=== PATIENT | male | born 1960 | race Caucasian/White ===

== ENCOUNTER 2018-08-29 19:10 | Inpatient (IN) | payer OTHER ==
[~2018-08-29] VITALS: Ht 170.2 cm; Wt 77.1 kg
[~2018-08-29 19:10] MED LIST: ASPI-1155 PO; INSU100V SQ; INSU100V9 SQ; LISI-209 PO
[2018-08-29 19:13] VITALS: BP_SYST 191
[2018-08-29] MEDS ORDERED: NACL 0.9% 1,000 ML IV ONE (19:13)
[2018-08-29] MEDS ORDERED: NITROGLYCERIN 0.4 MG TAB.SUBL SL ONE (19:15)
[2018-08-29] MEDS ORDERED: CLOPIDOGREL BISULFATE 75 MG TABLET PO ONE (19:15)
[2018-08-29] MEDS ORDERED: ASPIRIN 81 MG TAB.CHEW PO ONE (19:15)
[2018-08-29] MEDS ORDERED: CLOPIDOGREL BISULFATE 75 MG TABLET ONE (19:30)
[2018-08-29] MEDS ORDERED: ONDANSETRON HCL 4 MG/2 ML VIAL ONE (19:45)
[2018-08-29] MEDS ORDERED: ONDANSETRON 4 MG ODT TAB PO ONE (19:45)
[2018-08-29 19:50] LABS: BASOPHILS % (AUTO) 0.3 % (0.0-2.0); EOSINOPHILS % (AUTO) 0.4 % (0.0-4.0); HEMATOCRIT 50.9 % (36-54); HEMOGLOBIN 17.3 g/dL (14.0-18.0); LYMPHOCYTES # (AUTO) 1.4 K/uL (1.0-5.5); LYMPHOCYTES % (AUTO) 14.2 % (20.5-51.5); MEAN CORPUSCULAR HEMOGLOBIN 33 pg (27-31); MEAN CORPUSCULAR HGB CONC 34 % (32-36); MEAN CORPUSCULAR VOLUME 97 fL (79.0-98.0); MONOCYTES # (AUTO) 0.6 K/uL (0.0-1.0); MONOCYTES % (AUTO) 6.2 % (1.7-9.3); NEUTROPHILS # (AUTO) 7.8 K/uL (1.8-7.7); NEUTROPHILS % (AUTO) 78.9 % (40.0-70.0); PLATELET COUNT (AUTO) 323 K/uL (130-430); RED BLOOD CELL COUNT(AUTO) 5.28 MIL/uL (4.2-6.2); RED CELL DISTRIBUTION WIDTH 12.1 % (9.0-15.0); WHITE BLOOD COUNT (AUTO) 9.8 K/uL (4.8-10.8)
[2018-08-29] MEDS ORDERED: PANTOPRAZOLE SODIUM 40 MG TAB PO ONE (20:00)
[2018-08-29 20:38] LABS: CALCIUM 10.7 mg/dL (8.4-11.0); CREATININE 1.07 mg/dL (0.55-1.30); POTASSIUM 3.8 mmol/L (3.5-5.1)
[2018-08-29 20:43] LABS: PROTHROMBIN TIME 10.4 SECS (9.5-12.5)
[2018-08-29 20:45] LABS: TOTAL BILIRUBIN 0.8 mg/dL (0.0-1.0)
[2018-08-29] MEDS ORDERED: NITROGLYCERIN 1 INCH (GM) OINT. ONE (21:15)
[2018-08-29] MEDS ORDERED: NITROGLYCERIN 1 INCH (GM) OINT. TP ONE (21:15)
[2018-08-29] MEDS ORDERED: ROSU10TA PO (21:21)
[2018-08-29] MEDS ORDERED: METOPROLOL TARTRATE 25 MG TABLET PO ONE (22:00)
[2018-08-29] MEDS ORDERED: ENOXAPARIN SODIUM 80 MG/0.8 ML SYRINGE SUBCUT ONE (22:00)
[2018-08-29] MEDS ORDERED: INSULIN REGULAR, HUMAN 100 UNITS/ML, 10 ML VIAL (novoLIN R) SUBCUT PRN (22:30)
[2018-08-29] MEDS ORDERED: DEXTROSE 50% JECT 50 ML DISP.SYRIN IVP PRN (22:30)
[2018-08-29 22:38] VITALS: BP_SYST 146
[2018-08-29 23:00] LABS: BILIRUBIN,URINE NEGATIVE (NEGATIVE); BLOOD, URINE NEGATIVE (NEGATIVE); CLARITY/URINE CLEAR (CLEAR); COLOR,URINE YELLOW (YELLOW); GLUCOSE,URINE NEGATIVE (NEGATIVE); KETONES,URINE 3+ (NEGATIVE); LEUKOCYTE ESTERASE ,URINE NEGATIVE (NEGATIVE); NITRITE, URINE NEGATIVE (NEGATIVE); PH,URINE 6.5 (5.0-8.0); PROTEIN URINE NEGATIVE (NEGATIVE); UROBILINOGEN,URINE 0.2 (0.2-1.0)
[2018-08-29 23:06] LABS: RBC,URINE 0-3 /HPF (0-3); WBC,URINE 0-3 /HPF (0-3)
[2018-08-29 23:07] LABS: BACTERIA,URINE RARE /HPF (None Seen); YEAST,URINE None Seen /HPF (None Seen)
[2018-08-29 23:24] LABS: CHOLESTEROL 122 mg/dL (<200); HDL CHOLESTEROL 48 mg/dL (>45); LDL CHOLESTEROL 69 mg/dL (<100); TRIGLYCERIDES 40 mg/dL (30-150)
[2018-08-29] MEDS ORDERED: ACETAMINOPHEN 325 MG TABLET PO PRN (23:45)
[2018-08-30] MEDS: MORPHINE 4 MG/ML INJ. SYRINGE IVP PRN ×3 (00:06→10:10)
[2018-08-30 00:20] VITALS: BP_SYST 132
[2018-08-30 03:35] VITALS: BP_SYST 135
[2018-08-30 08:00] VITALS: BP_SYST 142
[2018-08-30] MEDS ORDERED: ENOXAPARIN SODIUM 80 MG/0.8 ML SYRINGE SUBCUT SCH (08:00)
[2018-08-30] MEDS ORDERED: LISINOPRIL 5 MG TABLET PO SCH (09:00)
[2018-08-30] MEDS ORDERED: METOPROLOL TARTRATE 25 MG TABLET PO SCH (09:00)
[2018-08-30] MEDS ORDERED: *LOVENOX 1MG/KG Q24H/PHARMACY XX SCH (09:00)
[2018-08-30] MEDS ORDERED: ASPIRIN 81 MG TAB.CHEW PO SCH (09:00)
[2018-08-30] MEDS ORDERED: ATORVASTATIN 20 MG TABLET PO SCH (09:00)
[2018-08-30] MEDS ORDERED: ROSUVASTATIN CALCIUM 5 MG/TAB (CRESTOR) PO SCH (09:00)
[2018-08-30 10:14] VITALS: BP_SYST 150
[2018-08-30 10:33] VITALS: BP_SYST 150
== END 2018-08-30 11:17 | disposition short-term general hospital (02) | DRG 282 ==
LOC: SED 19:10 → STU 21:30
PROVIDERS: ADMIT Internal Medicine Hospice and Palliative Medicine; ATTEND Internal Medicine Hospice and Palliative Medicine
DX: I21.4 Non-ST elevation (NSTEMI) myocardial infarction (principal); E10.9 Type 1 diabetes mellitus without complications; E78.5 Hyperlipidemia, unspecified; I10 Essential (primary) hypertension; Z79.4 Long term (current) use of insulin; Z87.891 Personal history of nicotine dependence
CPT/HCPCS: 36415; 71045; 80053; 80061; 81000-TC; 82150-TC; 82550-TC; 82962; 83605; 83690-TC; 83880; 84484; 85025; 85610-TC; 85730-TC; 87040-TC; 93005; 93306; 99285; G0378; J1650; J2270; J2405; Q0162

== ENCOUNTER 2021-09-04 06:55 | Day surgery (SDC) | payer OTHER, SELFPAY ==
[~2021-09-04] VITALS: Ht 170.2 cm; Wt 74.8 kg
[~2021-09-04 06:55] MED LIST changes: +ROSU10TA2 PO
[2021-09-04] MEDS ORDERED: CEFAZOLIN 2 GM IVPB PREMIX 50 ML IV ONE (07:00)
[2021-09-04] MEDS ORDERED: SUCCINYLCHOLINE CHLORIDE 20 MG/ML(QUELICIN) IVP ONE (08:45)
[2021-09-04] MEDS ORDERED: NS IRRIG SOLN 1000 ML IR ONE (08:45)
[2021-09-04] MEDS ORDERED: MIDAZOLAM HCL 5 MG/5 ML VIAL IVP ONE (08:45)
[2021-09-04] MEDS ORDERED: DEXAMETHASONE SOD PHOSPHATE 4 MG/ML VIAL IVP ONE (08:45)
[2021-09-04] MEDS ORDERED: fentaNYL CITRATE 250 MCG/5 ML AMP IV ONE (08:45)
[2021-09-04] MEDS ORDERED: PROPOFOL 200MG/ 20ML VIAL (DIPRIVAN) IV ONE (08:45)
[2021-09-04] MEDS ORDERED: LR 1,000 ML IV.SOLN IV ONE (08:45)
[2021-09-04] MEDS ORDERED: ONDANSETRON HCL 4 MG/2 ML VIAL IVP ONE (08:45)
[2021-09-04] MEDS ORDERED: BUPIVACAINE /EPINEPHRINE/PF 0.5% 30 ML VIAL INJ ONE (08:45)
[2021-09-04] MEDS ORDERED: SEVOFLURANE 15 MIN GAS INH ONE (08:45)
[2021-09-04] MEDS ORDERED: WATER FOR IRRIGATION,STERILE 1,000 ML IRRIG.SOLN IR ONE (08:45)
[2021-09-04] MEDS ORDERED: SUGAMMADEX SODIUM 200 MG/2 ML VIAL IV ONE (08:45)
[2021-09-04] MEDS ORDERED: ROCURONIUM BROMIDE 10 MG/ML (ZEMURON) IV ONE (08:45)
[2021-09-04] MEDS ORDERED: METOCLOPRAMIDE HCL 10 MG/2 ML VIAL IVP PRN (11:30)
[2021-09-04] MEDS ORDERED: HYDROmorphone 1 MG/ML INJ. CARTRIDGE IVP PRN (11:30)
[2021-09-04] MEDS ORDERED: KETOROLAC TROMETHAMINE 30 MG VIAL IVP PRN (11:30)
[2021-09-04] MEDS ORDERED: LR 1,000 ML IV SCH (11:30)
[2021-09-04] MEDS ORDERED: ONDANSETRON HCL 4 MG/2 ML VIAL IVP PRN (11:30)
[2021-09-04] MEDS ORDERED: MEPERIDINE HCL/PF 25 MG/ML DISP.SYRIN IVP PRN (11:30)
[2021-09-04 14:21] VITALS: BP_SYST 137
== END 2021-09-04 13:35 | disposition home or self-care (01) ==
LOC: SDS 06:55 → SMU 06:56 → SDS 11:15 → SMU 11:15 → SDS 13:35
PROVIDERS: ATTEND Surgery
DX: K40.90 Unilateral inguinal hernia, without obstruction or gangrene, not specified as recurrent (principal); K42.9 Umbilical hernia without obstruction or gangrene; E10.9 Type 1 diabetes mellitus without complications; I10 Essential (primary) hypertension; Z20.822 Contact with and (suspected) exposure to COVID-19; Z79.4 Long term (current) use of insulin; Z79.899 Other long term (current) drug therapy
CPT/HCPCS: 36415; 49585; 49650; 71046; 82962; 87426; C1781 ×2; J0330; J0690; J1100; J2250; J2405; J2704; J3010; J3490 ×2; J7120; S2900; U0003; E0190

== ENCOUNTER 2022-07-18 11:24 | Observation (INO) | payer OTHER ==
[~2022-07-18] VITALS: Ht 152.4 cm; Wt 68.2 kg
--- NOTE | 2022-07-18 11:39 | NUR ---
PATIENT AMBULATORY TO ER AAOX4 SPEECH CLEAR AND COHERENT, C/O CHEST PAIN SINCE LAST NIGHT WITH HX OF DM, PLACE IN BED, AWAITING FOR EDP FOR INITIAL ASSESSMENT.
[2022-07-18 11:46] VITALS: BP_SYST 134
[2022-07-18] MEDS ORDERED: MAG-AL HYDROX/SIMETH 30 ML UDC PO ONE (12:15)
[2022-07-18] MEDS ORDERED: FAMOTIDINE 20 MG TABLET PO ONE (12:15)
[2022-07-18 12:38] LABS: BASOPHILS % (AUTO) 0.3 % (0.0-2.0); EOSINOPHILS # (AUTO) 0.1 K/uL (0.0-0.4); EOSINOPHILS % (AUTO) 2.6 % (0.0-4.0); HEMATOCRIT 42.4 % (36-54); HEMOGLOBIN 14.8 g/dL (14.0-18.0); LYMPHOCYTES # (AUTO) 0.7 K/uL (1.0-5.5); LYMPHOCYTES % (AUTO) 25.9 % (20.5-51.5); MEAN CORPUSCULAR HEMOGLOBIN 35 pg (27-31); MEAN CORPUSCULAR HGB CONC 35 % (32-36); MEAN CORPUSCULAR VOLUME 100 fL (79.0-98.0); MONOCYTES # (AUTO) 0.4 K/uL (0.0-1.0); MONOCYTES % (AUTO) 16.4 % (1.7-9.3); NEUTROPHILS # (AUTO) 1.4 K/uL (1.8-7.7); NEUTROPHILS % (AUTO) 54.8 % (40.0-70.0); PLATELET COUNT (AUTO) 137 K/uL (130-430); RED BLOOD CELL COUNT(AUTO) 4.24 MIL/uL (4.2-6.2); RED CELL DISTRIBUTION WIDTH 12.7 % (9.0-15.0); WHITE BLOOD COUNT (AUTO) 2.5 K/uL (4.8-10.8)
[2022-07-18 12:49] LABS: ANION GAP 4 (5-15); CALCIUM 8.2 mg/dL (8.4-11.0); CHLORIDE 102 mmol/L (98-107); CREATININE 0.89 mg/dL (0.55-1.30); GLUCOSE 91 mg/dL (70-99); UREA NITROGEN, BLOOD 18 mg/dL (8-21)
[2022-07-18 12:55] LABS: ALANINE AMINOTRANSFERASE 67 U/L (12-78); ALBUMIN 3.2 g/dL (3.4-4.8); ASPARTATE AMINOTRANSFERASE 67 U/L (10-37); LIPASE 57 U/L (73-393); TOTAL BILIRUBIN 0.6 mg/dL (0.0-1.0)
[2022-07-18 12:56] LABS: GFR AFRICAN AMERICAN 111 mL/min (>90)
--- NOTE | 2022-07-18 13:30 | NUR ---
PATIENT REMAINS IN BED AWAITING FOR BED ASSIGNMENT.
--- NOTE | 2022-07-18 14:32 | NUR ---
COVID SWAB COLLECTED AND SENT TO LAB
[2022-07-18] MEDS ORDERED: INSULIN REGULAR, HUMAN 100 UNITS/ML, 3 ML VIAL (humuLIN R) SUBCUT PRN (15:00)
[2022-07-18] MEDS ORDERED: GLUCOSE (DEXTROSE) ORAL GEL -Adults PO PRN (15:00)
[2022-07-18] MEDS ORDERED: D5W 1,000 ML IV PRN (15:00)
[2022-07-18] MEDS ORDERED: DEXTROSE 50% JECT 50 ML DISP.SYRIN IVP PRN (15:00)
[2022-07-18] MEDS ORDERED: MORPHINE 2 MG/ML INJ. SYRINGE IVP PRN (15:00)
--- NOTE | 2022-07-18 15:04 | NUR ---
ECHOCARDIOGRAM IN PROCESS.
--- NOTE | 2022-07-18 15:57 | NUR ---
Admit bed requested Patient will be admitted to care of . Admitted to TELE unit. Diagnosis CP Inpatient (Yes or No) Y Observation (Yes or No) N Orientation concerns or request close to nursing station (Yes or No) N Covid Status NEG On vent or bipap N Isolation requirements N Needs a sitter N From Home (Yes or if No enter name of facility) Y Requires Dialysis (Yes or No) N Med Rec Completed (Yes of No) Y
[2022-07-18] MEDS ORDERED: LIP10 PO (16:15)
[2022-07-18] MEDS ORDERED: SSNOVOLOG SUBCUT (16:15)
[2022-07-18] MEDS ORDERED: CARV3.1246 PO (16:15)
[2022-07-18] MEDS ORDERED: ASA81 PO (16:15)
[2022-07-18] MEDS ORDERED: EZET-75 PO (16:15)
[2022-07-18] MEDS ORDERED: LISI20TA30 PO (16:15)
--- NOTE | 2022-07-18 16:36 | NUR ---
CONSULTATION PAGED/CALLED Reason for Consultation: [] CP Person Who was Notified: [] DANILO Consulting Physician: [] DR ORELLANA Ccna Specialty: [] CARDIO Ordering Physician: [] DR PERSAUD
[2022-07-18 16:52] VITALS: BP_SYST 145
--- NOTE | 2022-07-18 16:52 | NUR ---
Patient will be admitted to care of DR PERSAUD. Admitted to TELE unit. Will go to room 106A. Belongings list completed. Complete and up to date summary report printed. SBAR report to be given at bedside with opportunity for questions.
[2022-07-18 20:00] VITALS: BP_SYST 136
[2022-07-18 21:00] VITALS: BP_SYST 136
[2022-07-18] MEDS ORDERED: ATORVASTATIN 20 MG TABLET PO SCH (21:00)
--- NOTE | 2022-07-19 01:00 | NUR ---
LATE ENTRY DUE TO PATIENT CARE 2100 RECEIVED LYING IN BED WITH EYES CLOSED, EASILY AROUSED. ORIENTED X4. DENIES PAIN OR DISCOMFORT. ON ROOM AIR, NO SHORTNESS OF BREATH NOTED. CALL LIGHT WITHIN REACH. BED IN LOW, LOCKED POSITION. FALL PRECAUTIONS IN PLACE.
--- NOTE | 2022-07-19 08:00 | NUR ---
AM NOTES NO CHESTPAIN NOTED, WITH INSULIN PUMP ATTACHED TO LEFT SIDE OF HIS ABDOMEN, MACHINE DOING HIS OWN ACCUCHECK, WITH HUMALOG INSIDE THE PUMP.AWAITING FOR DR ORELLANA AND CORI TO SEE PATIENT.
[2022-07-19 08:30] LABS: BASOPHILS % (AUTO) 0.4 % (0.0-2.0); EOSINOPHILS # (AUTO) 0.1 K/uL (0.0-0.4); EOSINOPHILS % (AUTO) 1.9 % (0.0-4.0); HEMATOCRIT 44.2 % (36-54); HEMOGLOBIN 15.1 g/dL (14.0-18.0); LYMPHOCYTES # (AUTO) 0.8 K/uL (1.0-5.5); LYMPHOCYTES % (AUTO) 23.3 % (20.5-51.5); MEAN CORPUSCULAR HEMOGLOBIN 35 pg (27-31); MEAN CORPUSCULAR HGB CONC 34 % (32-36); MEAN CORPUSCULAR VOLUME 101 fL (79.0-98.0); MONOCYTES # (AUTO) 0.5 K/uL (0.0-1.0); NEUTROPHILS % (AUTO) 59.4 % (40.0-70.0); PLATELET COUNT (AUTO) 150 K/uL (130-430); RED BLOOD CELL COUNT(AUTO) 4.37 MIL/uL (4.2-6.2); RED CELL DISTRIBUTION WIDTH 13.1 % (9.0-15.0); WHITE BLOOD COUNT (AUTO) 3.5 K/uL (4.8-10.8)
[2022-07-19 08:41] LABS: ALBUMIN 3.1 g/dL (3.4-4.8); CREATININE 0.91 mg/dL (0.55-1.30); TOTAL BILIRUBIN 0.6 mg/dL (0.0-1.0)
[2022-07-19] MEDS ORDERED: CARVEDILOL 3.125 MG TABLET (COREG) PO SCH (09:00)
[2022-07-19] MEDS ORDERED: ASPIRIN 81 MG TAB.CHEW PO SCH ×3 (09:00)
[2022-07-19] MEDS ORDERED: LIP80 PO (09:57)
[2022-07-19 09:58] VITALS: BP_SYST 111
[2022-07-19 11:36] VITALS: BP_SYST 128
[2022-07-19 11:49] VITALS: BP_SYST 128; BP_SYST 141
--- NOTE | 2022-07-19 12:00 | NUR ---
SEEN BY MD PER DR ORELLANA, TO CHECK THE NEXT TROPONIN AT 13:30 AND IF NEGATIVE, CLEARED ON CARDIAC STANDPOINT. DR PERSAUD ORDERED TO DC HOME ONCE TROPONIN IS NEGATIVE
[2022-07-19 15:28] VITALS: BP_SYST 141
--- NOTE | 2022-07-19 15:30 | NUR ---
DC PATIENT TROPONIN RESULTS IS NEGATIVE, FOR DISCHARGE TODAY. Patient given medication reconciliation form and D/C instructions. Exit Care provided. Patient verbalized understanding. MD discussed with patient the results and treatment provided. Ambulatory with steady gait for discharge to home. Patient in stable condition, ID band removed. IV catheter removed, intact and dressing applied, no active bleeding. Rx of given. Patient educated on pain management. All belongings sent with patient.
[2022-07-19] MEDS ORDERED: ATORVASTATIN 10 MG TABLET PO SCH (21:00)
== END 2022-07-19 16:15 | disposition home or self-care (01) ==
LOC: SED 11:24 → STU 14:46
PROVIDERS: ADMIT Family Medicine; ATTEND Family Medicine
DX: R07.89 Other chest pain (principal); Z20.822 Contact with and (suspected) exposure to COVID-19; E10.9 Type 1 diabetes mellitus without complications; I10 Essential (primary) hypertension; E78.5 Hyperlipidemia, unspecified; I25.2 Old myocardial infarction; Z79.4 Long term (current) use of insulin; Z96.41 Presence of insulin pump (external) (internal); Z79.899 Other long term (current) drug therapy; Z87.891 Personal history of nicotine dependence
CPT/HCPCS: 80053 ×2; 83690; 85025 ×2; 84484 ×2; 36415 ×2; 93306; 71045; 99284; 83036; 87426; 93005; G0378 ×2